=== PATIENT | male | born 1965 | race Caucasian/White ===

== ENCOUNTER 2018-09-23 10:06 | Emergency (ER) | payer SELFPAY ==
[~2018-09-23] VITALS: Ht 170.2 cm; Wt 74.0 kg
[2018-09-23 10:15] VITALS: BP 192/90
== END 2018-09-23 14:10 | disposition left against medical advice (07) ==
LOC: ER 10:15
DX: Z53.21 Procedure and treatment not carried out due to patient leaving prior to being seen by health care provider (principal)